=== PATIENT | female | born 1975 | race Caucasian/White ===

== ENCOUNTER 2017-10-04 15:50 | Emergency (ER) | payer BC ==
[2017-10-04 16:03] VITALS: BP 123/80; PULSE 91; RESP 16; TEMP 97.9
[2017-10-04] MEDS ORDERED: AMOXIC-POT CLAV 875-125MG 1 EACH TAB PO STA (16:27)
--- NOTE | 2017-10-04 16:38 | ED ---
ENT HPI - General Source: patient, RN notes reviewed Mode of arrival: ambulatory Limitations: no limitations <Obdulia Viveros - Last Filed: 10/04/17 16:28> <Huyen Suazo - Last Filed: 10/05/17 21:47> - General Chief complaint: ENT Stated complaint: Face swollen/Right side Time Seen by Provider: 10/04/17 16:05 - History of Present Illness Initial comments: This is a 42-year-old female who presents to the emergency department with chief complaint of right-sided facial swelling. Patient states that this morning she was eating and felt sudden pain in the right side of her face. She describes it as the "sensation you get when eating something sour." She states that she went and looked in the mirror and noticed some facial swelling. Patient denies any neck pain. She denies dental pain. Patient states that she is fully up-to-date with vaccinations. She denies recent fevers or chills, chest pain or shortness of breath, abdominal pain, nausea or vomiting. (Obdulia Viveros) - Related Data Previous Rx's Medication Instructions Recorded Amoxicillin/Potassium Clav 1 tab PO Q12HR #14 tab 10/04/17 [Augmentin 875-125 Tablet] Allergies Allergy/AdvReac Type Severity Reaction Status Date / Time No Known Allergies Allergy Verified 10/04/17 16:03 Review of Systems ROS Other: All systems not noted in ROS Statement are negative. <Obdulia Viveros - Last Filed: 10/04/17 16:28> ROS Other: All systems not noted in ROS Statement are negative. <Huyen Suazo - Last Filed: 10/05/17 21:47> ROS Statement: Those systems with pertinent positive or pertinent negative responses have been documented in the HPI. Past Medical History Past Medical History: No Reported History History of Any Multi-Drug Resistant Organisms: None Reported Past Surgical History: Orthopedic Surgery Additional Past Surgical History / Comment(s): Jaw surgery, Past Psychological History: No Psychological Hx Reported Smoking Status: Current every day smoker Past Alcohol Use History: Rare Past Drug Use History: None Reported <Obdulia Viveros - Last Filed: 10/04/17 16:28> General Exam Limitations: no limitations <Obdulia Viveros - Last Filed: 10/04/17 16:28> <Huyen Suazo P - Last Filed: 10/05/17 21:47> - General Exam Comments Initial Comments: General: Awake and alert, well-developed; in no apparent distress. HEENT: Head atraumatic, normocephalic. Pupils are equal, round and reactive to light. Extraocular movements intact. There is swelling and tenderness over the right parotid gland. A thin, white substance was extracted from the parotid gland opening. Dentition is intact and there is no tenderness on palpation of teeth or gumline. Oropharynx moist without erythema or exudate. Neck: Supple. Normal ROM. Cardiovascular: Regular rate and rhythm. No murmurs, rubs or gallops. Chest symmetrical. Respiratory: Lungs clear to auscultation bilaterally. No wheezes, rales or rhonchi. Normal respiratory effort with no use of accessory muscles. Musculoskeletal: Normal ROM, no tenderness bilateral upper and lower extremities. Ambulating normally. Skin: [place], warm and dry without rashes or lesions. Neurological: Alert and oriented x3. CN II-XII grossly intact. Speech is fluent and answers are appropriate. No focal neuro deficits. Psychiatric: Normal mood and affect. No overt signs of depression or anxiety noted. (Obdulia Viveros) Vital Signs 10/04/17 16:00 Temperature 97.9 F Pulse Rate 91 Respiratory 16 Rate Blood Pressure 123/80 O2 Sat by Pulse 98 Oximetry Medical Decision Making <Obdulia Viveros - Last Filed: 10/04/17 16:28> <Huyen Suazo P - Last Filed: 10/05/17 21:47> - Medical Decision Making This is a 42-year-old female who presents to the emergency department with chief complaint of right-sided facial swelling. On physical examination, there is swelling and tenderness over the right parotid gland. A thin, white substance was extracted from the parotid gland opening. Patient felt instant relief with saliva flow. Reduction in swelling is already noted. Patient will be started on Augmentin to cover for any infection. She is fully up-to-date with vaccinations. Vital signs are stable and she is in no acute distress. She will be discharged home at this time. She is in agreement voices understanding. All questions were answered. (Obdulia Viveros) The patient was seen and evaluated independently by the mid-level provider. I was present and available in the emergency department to evaluate the patient but was not asked to do so. We did discuss this patient's evaluation and workup. I agree with the mid-level providers evaluation and disposition as documented in the note. (Huyen Suazo) Disposition Is patient prescribed a controlled substance at d/c from ED?: No Time of Disposition: 16:38 <Obdulia Viveros - Last Filed: 10/04/17 16:28> <Huyen Suazo - Last Filed: 10/05/17 21:47> Clinical Impression: Parotid sialolithiasis Disposition: HOME SELF-CARE Condition: Good Instructions: Parotid Duct Obstruction (ED) Additional Instructions: Please take medications as prescribed. Please use lemon/sour lozenges. Please follow up with primary care provider within 1-2 days. Return to emergency department if symptoms should worsen or any concerns arise. Prescriptions: Amoxicillin/Potassium Clav [Augmentin 875-125 Tablet] 1 tab PO Q12HR #14 tab Referrals: Fifi Cary III, MD [Primary Care Provider] - 1-2 days
== END 2017-10-04 16:45 | disposition home or self-care (01) ==
LOC: EC 15:50
DX: K11.5 Sialolithiasis (principal); F17.200 Nicotine dependence, unspecified, uncomplicated
CPT/HCPCS: 99283

== ENCOUNTER 2017-10-30 05:46 | Day surgery (SDC) | payer BC ==
[2017-10-26 12:57] VITALS: BMI 27.2
--- NOTE | 2017-10-29 12:44 | P.HPOB ---
History of Present Illness H&P Date: 10/29/17 Chief Complaint: Menorrhagia This patient is a pleasant 42 yr female who is presenting for endometrial ablation secondary to persistent menorrhagia. Pelvic ultrasound has shown 2 endometrial polyps and she wishes to proceed with hysterscopy, D&C, and ablation for treatment. Review of Systems Genitourinary: Reports menorrhagia Menstruation: Reports period heavy Past Medical History Past Medical History: No Reported History Additional Past Medical History / Comment(s): "abnormal heavy vaginally bleeding with uterine polyps" History of Any Multi-Drug Resistant Organisms: None Reported Past Surgical History: Orthopedic Surgery Additional Past Surgical History / Comment(s): Jaw surgery, lt knee surgery Past Anesthesia/Blood Transfusion Reactions: No Reported Reaction Past Psychological History: No Psychological Hx Reported Smoking Status: Current every day smoker Past Alcohol Use History: None Reported Past Drug Use History: None Reported - Past Family History Mother Family Medical History: No Reported History Daughter(s) Family Medical History: Cancer Additional Family Medical History / Comment(s): brain cancer at age 7 Medications and Allergies Home Medications Medication Instructions Recorded Confirmed Type No Known Home Medications 10/26/17 10/26/17 History Allergies Allergy/AdvReac Type Severity Reaction Status Date / Time No Known Allergies Allergy Verified 10/26/17 12:49 Exam - OBG Physical Exam Abdomen: bowel sounds normal, no diffuse tenderness, no bruit present, no guarding noted, no hepatomegaly, no splenomegaly, no mass Vulva: both: normal Vagina: normal moisture, no discharge Cervix: no lesion, no discharge Uterus: normal size, normal contour Adnexa: both: normal Results Ultrasound shows 2 small endometrial polyps (1.2 cm and .7 cm). Assessment and Plan Assessment: This is a pleasant 42 yr female with longstanding menorrhagia requesting endometrial ablation for treatment. Plan is hysteroscopy, D&C, and Novasure endometrial ablation. I have discussed this surgery and risks: infection, bleeding, possible uterine perforation and/or thermal injury. All of the patients questions have been answered and a written consent obtained. 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 (1) Menorrhagia Status: Chronic Code(s): N92.0 - EXCESSIVE AND FREQUENT MENSTRUATION WITH REGULAR CYCLE SNOMED Code(s): 759550621
[~2017-10-30 05:46] MED LIST: DEXAMETHASONE SOD PHOSPHATE 10 MG/ML 1 ML VIAL IV ONE; HYDROmorphone 0.5 MG/0.5 ML SYRINGE IVP PRN; LACTATED RINGERS 1,000 ML IV SCH; LIDOCAINE 1% 20 ML VIAL (10MG/ML) FOR IV START INTRADERMA PRN; ONDANSETRON 4 MG/2 ML VIAL IVP ONE; Pre Op ABX Message 1 EACH MISC MISCELLANE ONE; SCOPOLAMINE 1.5MG/72HR PATCH TRANSDERM ONE
[2017-10-30] MEDS ORDERED: MIDAZOLAM 2 MG/2 ML VIAL ONE (07:17)
[2017-10-30] MEDS ORDERED: LIDOCAINE 1% INJ 10MG/ML (20 ML MDV) ONE (07:17)
[2017-10-30] MEDS ORDERED: PROPOFOL 10 MG/ML 20 ML VIAL IV ONE (07:17)
[2017-10-30] MEDS ORDERED: fentaNYL (PF) 50 MCG/ML 2 ML AMP ONE (07:17)
[2017-10-30] MEDS ORDERED: SUCCINYLCHOLINE CHLORIDE 100 MG/5 ML SYR IV ONE (07:17)
[2017-10-30] MEDS ORDERED: KETOROLAC 30 MG/ML 1 ML VIAL ONE (07:17)
--- NOTE | 2017-10-30 07:49 | P.OP ---
Date of Procedure: 10/30/17 Preoperative Diagnosis: Menorrhagia Postoperative Diagnosis: Same Procedure(s) Performed: #1: Hysteroscopy. #2: Dilation and curettage. #3: NovaSure endometrial ablation Anesthesia: MARLENE Surgeon: Iban Harden Estimated Blood Loss (ml): 5 Urine output (ml): 100 Pathology: other (Uterine curettings) Condition: stable Disposition: PACU Indications for Procedure: Please see dictated H&P for intimate details of this patient's admission. Brief summary this pleasant 42-year-old female with long-standing menorrhagia who is requesting NovaSure endometrial ablation for treatment. Patient understands this surgery and risks including risks of infection, bleeding, possible uterine perforation, and/or thermal injury. All the patient's questions are answered and a written consent is obtained. Operative Findings: This patient had a appear to be a few small polyps but otherwise normal endometrial cavity. Description of Procedure: This patient is taken to the operating room where she is laid in the supine position. She subsequent undergoes general endotracheal anesthesia without incident. With an adequate level of anesthesia was placed in the dorsal lithotomy position. His vaginal perineal prep and drape. Examination under anesthesia shows a mid position uterus of normal size. I first drain the bladder for approximately 100 mL of clear urine. Weighted speculums placed the posterior vagina and the anterior lip of the cervix was grabbed with an Allis clamp. Uterus is then gently sounded to 8.5 cm. With this done, I gently dilate the cervix to allow a hysteroscope easily and the uterine cavity. Using saline solution hysteroscopy is performed uterine cavity is measured to be a length of 6 cm. With this done the hysteroscope was removed. Cervix is dilated slightly more to allow a small curette easily uterine cavity. A gentle but vigorous 4 quadrant curettage is done. I then used a polyp forceps and move any tissue that I can. This done the NovaSure device is then opened it appears to be intact. I set at a length of 6.0 cm and it opens up to a width at 3.5 cm. It is then seated in place and passes the cavity integrity test. It is then enabled at 116 W setting for 86 seconds. This done the NovaSure device is removed it appears to be intact. Hysteroscopy is then performed again and the uterine cavity appears to be ablated up to the endocervix. This completed the procedure is then ended. The Allis clamp was removed and the weighted speculum was removed. All counts correct 3. There are no complications. Patient is awakened from anesthesia and taken recovery room satisfactory condition.
[2017-10-30 07:59] VITALS: TEMP 97.6
[2017-10-30 08:06] VITALS: RESP 16
[2017-10-30 09:32] VITALS: BP 128/84; PULSE 81
== END 2017-10-30 09:42 | disposition home or self-care (01) ==
LOC: OR 05:46
PROVIDERS: ATTEND Obstetrics & Gynecology
DX: N84.0 Polyp of corpus uteri (principal); F17.210 Nicotine dependence, cigarettes, uncomplicated
CPT/HCPCS: 81025; 88305; 58563; J2250; J1100; J2405; J2001; J3010; J1885; J0330; J2704

== ENCOUNTER → 2018-05-10 | Outpatient (CLI) | payer BC ==
--- NOTE | 2018-05-10 08:36 | MM ---
Reason for exam: screening (asymptomatic). Baseline mammogram. History: Took hormonal contraceptives beginning at age 23. Physical Findings: Nurse did not find any significant physical abnormalities on exam. MG 3D Screening Mammo W/Cad Bilateral CC, MLO, and XCCL view(s) were taken. The breast tissue is heterogeneously dense. This may lower the sensitivity of mammography. There is no discrete abnormality. These results were verbally communicated with the patient and result sheet given to the patient on 05/10/18. ASSESSMENT: Benign, BI-RAD 2 RECOMMENDATION: Routine screening mammogram of both breasts in 1 year.
== END ==
LOC: RADMAMWWP 06:56
PROVIDERS: ATTEND Family Medicine
DX: Z12.31 Encounter for screening mammogram for malignant neoplasm of breast (principal)
CPT/HCPCS: 77063; 77067

== ENCOUNTER → 2020-11-30 | Outpatient (CLI) | payer BC ==
--- NOTE | 2020-12-03 09:11 | MM ---
Reason for exam: screening (asymptomatic). Last mammogram was performed 2 years and 7 months ago. History: Took hormonal contraceptives beginning at age 23. Physical Findings: A clinical breast exam by your physician is recommended on an annual basis and results should be correlated with mammographic findings. MG 3D Screening Mammo W/Cad Bilateral CC and MLO view(s) were taken. Prior study comparison: May 10, 2018, bilateral MG 3d screening mammo w/cad. There are scattered fibroglandular densities. There is no discrete abnormality. No significant changes when compared with prior studies. ASSESSMENT: Negative, BI-RAD 1 RECOMMENDATION: Routine screening mammogram of both breasts in 1 year.
== END | disposition home or self-care (01) ==
LOC: RADMAMWWP 11:15
PROVIDERS: ATTEND Family Medicine
DX: Z12.31 Encounter for screening mammogram for malignant neoplasm of breast (principal)
CPT/HCPCS: 77063; 77067

== ENCOUNTER → 2020-12-07 | Outpatient (CLI) | payer BC ==
--- NOTE | 2020-12-25 13:50 | EM ---
EVENT MONITOR FOURTEEN-DAY EVENT MONITOR: Patient had several recordings on her 14-day event monitor. Most of these were supraventricular beats, isolated in fashion. Other times it was sinus rhythm, sinus tachycardia. Most of these were auto capture. Patient complained of chest pressure on one occasion and she was in a normal sinus rhythm. She felt some irregularity and a fluttering sensation, but she was in a normal rhythm at 80 beats per minute. There is no correlation of any arrhythmia when patient felt some symptoms of irregular beat or flutter. Isolated PVCs and PACs were noted. No other significant arrhythmia was detected on this event monitor. MMODL / IJN: [id number] /
== END | disposition home or self-care (01) ==
LOC: RADECHMAIN 11:49
PROVIDERS: ATTEND Nurse Practitioner Family
DX: I49.3 Ventricular premature depolarization (principal); I49.1 Atrial premature depolarization
CPT/HCPCS: 93270

== ENCOUNTER → 2022-08-29 | Outpatient (CLI) | payer BC ==
[2022-08-29 15:43] LABS: Basophils # (A) 0.05 X 10*3/uL (0.00-0.10); Basophils % (A) 0.7 %; Eosinophils # (A) 0.21 X 10*3/uL (0.04-0.35); HCT 44.6 % (37.2-46.3); HGB 14.6 d/dL (12.0-15.0); Lymphocytes # (A) 2.27 X 10*3/uL (0.90-5.00); Lymphocytes % (A) 32.1 %; MCH 30.8 pg (27.0-32.0); MCHC 32.7 d/dL (32.0-37.0); MCV 94.1 FL (80.0-97.0); Mean Platelet Volume 9.7 FL (9.5-12.2); Monocytes # (A) 0.44 X 10*3/uL (0.20-1.00); Monocytes % (A) 6.2 %; NRBC Per 100 WBC 0 X 10*3/uL (0.00-0.01); Neutrophils # (A) 4.07 X 10*3/uL (1.80-7.70); Neutrophils % (A) 57.6 %; Platelet Count 408 X 10*3/uL (140-440); RBC 4.74 X 10*6/uL (4.10-5.20); RDW 12.6 % (11.5-14.5); WBC 7.07 X 10*3/uL (4.50-10.00)
[2022-08-29 16:00] LABS: BUN/Creat Ratio 10.12 Ratio (12.00-20.00); Blood Urea Nitrogen 8.1 mg/dL (9.0-27.0); Calcium 10.1 mg/dL (8.7-10.3); Carbon Dioxide 23.1 mmol/L (21.6-31.8); Chloride 103 mmol/L (96-109); Glucose 82 mg/dL (70-110); Potassium 4.7 mmol/L (3.5-5.5); Sodium 138 mmol/L (135-145)
== END | disposition home or self-care (01) ==
LOC: LABPAT 08:15
PROVIDERS: ATTEND Obstetrics & Gynecology
DX: Z01.812 Encounter for preprocedural laboratory examination (principal)
CPT/HCPCS: 80048; 85025

== ENCOUNTER 2022-09-04 05:32 | Observation (INO) | payer BC ==
--- NOTE | 2022-09-03 13:08 | P.HPOB ---
History of Present Illness H&P Date: 09/03/22 Chief Complaint: Dysmenorrhea, Menorrhagia with irregular cycle This is a 47 y.o. female, 3, para 2, who presents for total laparoscopic hysterectomy with bilateral salpingectomy with Davinci and diagnostic cystoscopy, possible bilateral oophorectomy, possible total abdominal hysterectomy with bilateral salpingooophorectomy due to menorrhagia with irregular cycle, dysmenorrhea and post-ablative syndrome. She had a Novasure endometrial ablation in 2018 and states it didn't work. Her menses were previously 3 days and are now lasting up to 7 days and she has severe cramping during her cycles. She would like definitive surgical treatment. Pelvic ultrasound shows uterus measuring 10.5 x 6.1 x 4.8 cm with endometrium poorly visualized. There are a few couple small fibroids measuring less than 2 cm anteriorly. Small simple cysts are noted bilateral ovaries. OB Hx: History of 2 vaginal deliveries and 1 miscarriage. [employer] Hx: No history of STDs. Social Hx: . Works at [employer]. Review of Systems Constitutional: Denies chills, Denies fever Eyes: denies blurred vision, denies pain Ears, nose, mouth and throat: Denies headache, Denies sore throat Cardiovascular: Denies chest pain, Denies shortness of breath Respiratory: Denies cough Gastrointestinal: Denies abdominal pain, Denies diarrhea, Denies nausea, Denies vomiting Genitourinary: Reports dysmenorrhea, Reports menorrhagia, Reports pelvic pain Menstruation: Reports period heavy Musculoskeletal: Reports low back pain Integumentary: Denies pruritus, Denies rash Psychiatric: Denies anxiety, Denies depression Endocrine: Denies fatigue, Denies weight change Past Medical History Past Medical History: No Reported History Additional Past Medical History / Comment(s): "abnormal heavy vaginally bleeding with uterine polyps", L leg sciatica History of Any Multi-Drug Resistant Organisms: None Reported Past Surgical History: Orthopedic Surgery, Uterine Ablation Additional Past Surgical History / Comment(s): Jaw surgery, L knee arthroscopy/realignment. Past Anesthesia/Blood Transfusion Reactions: No Reported Reaction Additional Past Anesthesia/Blood Transfusion Reaction / Comment(s): Pt never received blood. Past Psychological History: No Psychological Hx Reported Smoking Status: Current every day smoker Past Alcohol Use History: Occasional Additional Past Alcohol Use History / Comment(s): Pt started smoking in 1995, 1- 2 cigarettes per day Past Drug Use History: None Reported - Past Family History Mother Family Medical History: Coronary Artery Disease (CAD) Additional Family Medical History / Comment(s): cabg Daughter(s) Family Medical History: Cancer Additional Family Medical History / Comment(s): brain cancer at age 7 Medications and Allergies Home Medications Medication Instructions Recorded Confirmed Type Ibuprofen [Motrin Ib] 200 mg PO Q8HR PRN 09/01/22 09/01/22 History Multivit with Calcium,Iron,Min 1 tab PO QAM 09/01/22 09/01/22 History [Women's Multivitamin] Allergies Allergy/AdvReac Type Severity Reaction Status Date / Time No Known Allergies Allergy Verified 09/04/22 06:07 Exam Osteopathic Statement: *. No significant issues noted on an osteopathic structural exam other than those noted in the History and Physical/Consult. HEENT: within normal limits Heart: regular rate and rhythm Lungs: clear to auscultation bilaterally Abdomen: soft, non-tender Pelvic: uterus sl. enlarged, non-tender with no adnexal masses or tenderness Extremities: neg. Mariposa's Assessment and Plan (1) Menorrhagia with irregular cycle Current Visit: No Status: Acute Code(s): N92.1 - EXCESSIVE AND FREQUENT MENSTRUATION WITH IRREGULAR CYCLE SNOMED Code(s): 755551137 (2) Dysmenorrhea Current Visit: No Status: Acute Code(s): N94.6 - DYSMENORRHEA, UNSPECIFIED SNOMED Code(s): 697167469 (3) Post endometrial ablation syndrome Current Visit: No Status: Acute Code(s): N99.85 - POST ENDOMETRIAL ABLATION SYNDROME SNOMED Code(s): 727108879 Plan: Proceed with total laparoscopic hysterectomy with bilateral salpingectomy with Davinci and diagnostic cystoscopy, possible bilateral oophorectomy, possible total abdominal hysterectomy with bilateral salpingooophorectomy. I have discussed the risks, benefits, and alternative therapies for the above- mentioned procedure and for both sedation/anesthesia as well as necessary blood products administration, if indicated, as they pertain to this patient. The patient has indicated her understanding and acceptance of the risks and procedures discussed.
[2022-09-04] MEDS ORDERED: ONDANSETRON 4 MG/2 ML VIAL IVP ONE ×2 (05:41→09:32)
[2022-09-04] MEDS ORDERED: DEXAMETHASONE SOD PHOSPHATE 4 MG/ML 1 ML VIAL IV ONE (05:41)
[2022-09-04] MEDS ORDERED: HYDROmorphone 0.5 MG/0.5 ML SYRINGE IVP PRN (05:41)
[2022-09-04] MEDS: LACTATED RINGERS 1,000 ML IV SCH ×2 (06:18→14:54)
[2022-09-04] MEDS ORDERED: fentaNYL (PF) 50 MCG/1 ML VIAL IV ONE (06:41)
[2022-09-04] MEDS ORDERED: MIDAZOLAM 2 MG/2 ML VIAL IV ONE (06:41)
[2022-09-04] MEDS ORDERED: SODIUM CHLORIDE 0.9% (PF) 10 ML VIAL ONE (07:08)
[2022-09-04] MEDS ORDERED: MIDAZOLAM 2 MG/2 ML VIAL ONE (07:08)
[2022-09-04] MEDS ORDERED: SUCCINYLCHOLINE CHLORIDE 200 MG/10 ML VIAL IV ONE (07:08)
[2022-09-04] MEDS ORDERED: ROCURONIUM 10 MG/ML (5 ML VIAL) IV ONE (07:08)
[2022-09-04] MEDS ORDERED: NEOSTIGMINE 1 MG/ML 10 ML VIAL ONE (07:08)
[2022-09-04] MEDS ORDERED: GLYCOPYRROLATE 0.2 MG/ML 2 ML VIAL ONE (07:08)
[2022-09-04] MEDS ORDERED: ACETAMINOPHEN IV (For NPO) 1,000 MG/100 ML VIAL ONE (07:08)
[2022-09-04] MEDS ORDERED: PROPOFOL 10 MG/ML 20 ML VIAL IV ONE (07:08)
[2022-09-04] MEDS ORDERED: LIDOCAINE 2% INJ 20 MG/ML (2 ML VIAL) ONE (07:08)
[2022-09-04] MEDS ORDERED: HYDROmorphone (PF) 1 MG/ML ONE (07:08)
[2022-09-04] MEDS ORDERED: ROPIVACAINE 5 MG/ML 30 ML VIAL ONE (07:08)
[2022-09-04] MEDS ORDERED: fentaNYL (PF) 50 MCG/ML 2 ML AMP ONE (07:08)
[2022-09-04] MEDS ORDERED: BUPIVACAINE (PF) 0.25% 30 ML VIAL SQ ONE (07:52)
[2022-09-04] MEDS ORDERED: LACTATED RINGERS 1,000 ML IV ONE (08:44)
--- NOTE | 2022-09-04 08:56 | P.ANPRN ---
Procedure Note - Anesthesia - Nerve Block Performed Bilateral Erector Spinae Time Out Performed: Yes (06:40) Date of Procedure: 09/04/22 Procedure Start Time: Procedure Stop Time: :46 Location of Patient: PreOp Indication: Acute Post-Operative Pain, Requested by Surgeon (DR Rasmussen) Sedation Type: Sedate with meaningful contact maintained Preparation: Sterile Prep Position: Prone Catheter: None Needle Types: Pajunk Needle Gauge: 21 Ultrasound used to visualize needle placement: Yes Ultrasound used to observe medication spread: Yes Injectate: 0.5% Ropivacaine (see comment for volume) (15cc +10cc PF Normal saline each side) Blood Aspirated: No Pain Paresthesia on Injection Noted: No Resistance on Injection: Normal Image Stored and Saved: Yes Events: Uneventful and Well Tolerated
--- NOTE | 2022-09-04 09:47 | P.OP ---
Date of Procedure: 09/04/22 Preoperative Diagnosis: Menorrhagia with irregular cycle Dysmenorrhea Post-ablative syndrome Postoperative Diagnosis: Same Procedure(s) Performed: Total laparoscopic hysterectomy with bilateral salpingectomy with da Tawanda Diagnostic cystoscopy Anesthesia: MARLENE Surgeon: Lyly Rasmussen Manager Track #1: Amy Izaguirre Estimated Blood Loss (ml): 50 Pathology: other (Uterus with cervix, bilateral fallopian tubes) Condition: stable Disposition: floor Indications for Procedure: This is a 47 y.o. female, 3, para 2, who presents for total laparoscopic hysterectomy with bilateral salpingectomy with Davinci and diagnostic cystoscopy, possible bilateral oophorectomy, possible total abdominal hysterectomy with bilateral salpingooophorectomy due to menorrhagia with irregular cycle, dysmenorrhea and post-ablative syndrome. She had a Novasure endometrial ablation in 2018 and states it didn't work. Her menses were previously 3 days and are now lasting up to 7 days and she has severe cramping during her cycles. She would like definitive surgical treatment. Pelvic ultrasound shows uterus measuring 10.5 x 6.1 x 4.8 cm with endometrium poorly visualized. There are a few couple small fibroids measuring less than 2 cm anteriorly. Small simple cysts are noted bilateral ovaries. Operative Findings: Normal appearing uterus with normal tubes and ovaries noted. Uterus is sounded to 8-1/2 cm. Description of Procedure: The patient was taken to the operating room where she is placed in the dorsal lithotomy position on a pink pad. Her arms are tucked at her sides and cushioned. Once she is in adequate position and anesthesia was given, a tilt test is completed and passed. She is prepped and draped in the normal sterile fashion. Next a weighted speculum was placed in the patient's vagina. A right angle retractor is used to visualize the cervix. The anterior lip of the cervix is grasped with a single-tooth tenaculum. Uterus is sounded to 8-1/2 cm. Cervix is gently dilated with Kasper dilators. Next the cervix is measured at 3.5 cm. 0 Vicryl stitches are placed at the 3 and 9:00 positions on the cervix and held. Next the HUMI manipulator is placed within the cervix, the balloon is inflated, and then the 0 Vicryl sutures are brought through the HUMI and then the cervical cup is pressed against the cervix until the click is heard. Next the bladder Dahl catheter is inserted. Gloves are changed and attention is turned to the abdomen. The uterus is anteverted and then marked on the abdomen. An incision is made above the umbilicus approximately 8 cm above the top of the uterus and then a 5 mm disposable bladeless trocar is inserted under direct visualization with low flow. Once inside high flow is turned on and intra- abdominal contents were inspected. Another incision is made on the right side approximately 8 cm lateral to the umbilicus in the midline and a 8 mm da Tawanda port is placed under direct visualization. The same procedure is carried out on the left side. Next an rehab care assistant port is placed approximately 6 cm superior to the right da Tawanda port and lateral to the camera port using a 12 mm trocar under direct visualization. Next the 5 mm camera sleeved is replaced with an 8 mm da Tawanda port. Next the da Tawanda robot is docked to the patient from her right side. The ports are attached to the arms. Smoke evacuator is also attached. The camera is inserted and then a monopolar scissors is placed through the right port and a vessel sealer was placed through the left port under direct visualization. Energy is attached to the monopolar port. At this time I broke scrub to go to the robot console. The end of the left fallopian tube is grasped by the rehab care assistant and the vessel sealer is used to apply bipolar energy and cut the mesosalpinx. The fallopian tube was then removed through the rehab care assistant port. Next the vessel sealer is used to cauterize and cut the uterine ovarian ligaments. Monopolar scissors are used to open up the posterior leaf of the broad ligament down to the uterosacral ligaments. Uterine arteries are then cauterized with bipolar energy using the vessel sealer. Monopolar scissors were then used to carefully dissect the bladder reflection and the bladder flap is created. Next attention is turned to the right side of the pelvis. The end of the right fallopian tube is grasped and then the vessel sealer is used to cauterize and cut along the mesosalpinx. The end of the fallopian tube was then removed through the rehab care assistant port. The uterine ovarian ligaments are cauterized and cut with the vessel sealer and then the posterior edge of the broad leaf is opened up to the uterosacral ligaments. Uterine arteries are cauterized with the vessel sealer and cut. Next the uterus is retroverted and the balloon is inflated. Monopolar scissors are used to cut through the vaginal cuff along the HUMI cuff anteriorly. This is carried around to the right side again using monopolar and vessel sealer. The uterus is anteverted and then the posterior cuff is cut along the HUMI cuff using monopolar scissors. The remainder of the left side of the cuff is removed with monopolar and vessel sealer. Once the uterus is freed it is removed through the vagina. Monopolar and vessel sealer are used to cauterize any small bleeders left behind. Next the arms are switched out to the right arm with Brandon suture cut and the left arm continued with the vessel sealer. An O-Stratafix suture is then used to suture from the right side of the cuff across to the left side in a running fashion after securing the suture with the small loop on the end. Once the left side of the cuff was reached, a couple more sutures were placed going towards the right side to secure the suture. Suture was then cut and removed from the field. Irrigation was carried out. Good hemostasis was noted. Picture was taken. Both ovaries appeared normal. Next the instruments are removed from the arms. The arms are detached from the trochars. The da Tawanda robot is then undocked and stowed. The trochars are removed after releasing the pneumoperitoneum area incisions are then sutured with 4-0 undyed Vicryl suture in a subcuticular fash ion and then injected with quarter percent Marcaine. I regowned and cystoscopy was then performed. Both ureteral orifices were visualized with flow from both sides. Cystoscopy was then completed and Dahl catheter was replaced. Clear urine was noted. All sponge and needle counts are correct. The patient is then taken to recovery room in stable condition.
[2022-09-04] MEDS ORDERED: IBUPROFEN 600 MG TAB PO PRN (11:02)
[2022-09-04] MEDS ORDERED: diphenhydrAMINE 50 MG/ML 1 ML VIAL IVP PRN (11:02)
[2022-09-04] MEDS ORDERED: METOCLOPRAMIDE 5 MG/ML 2 ML VIAL IVP PRN (11:02)
[2022-09-04] MEDS ORDERED: ZOLPIDEM 5 MG TAB PO PRN (11:02)
[2022-09-04] MEDS ORDERED: ACETAMINOPHEN IV (For NPO) 1,000 MG in EMPTY BAG 1 BAG IVPB ONE (11:02)
[2022-09-04] MEDS ORDERED: ONDANSETRON 4 MG/2 ML VIAL IVP PRN (11:02)
[2022-09-04] MEDS: SENNOSIDES-DOCUSATE SODIUM 1 EACH TAB PO SCH ×2 (11:31→21:47)
[2022-09-04] MEDS: SIMETHICONE 80 MG CHEWABLE PO PRN ×2 (11:39→18:05)
[2022-09-04] MEDS: KETOROLAC 15 MG/ML 1 ML VIAL IVP PRN ×2 (14:54→21:39)
[2022-09-04] MEDS ORDERED: ACETAMINOPHEN TAB 325 MG TAB PO PRN (17:54)
[2022-09-04] MEDS: ACETAMINOPHEN TAB 325 MG TAB PO PRN (18:05)
[2022-09-05] MEDS: ACETAMINOPHEN TAB 325 MG TAB PO PRN ×2 (00:31→06:17)
[2022-09-05] MEDS: SIMETHICONE 80 MG CHEWABLE PO PRN (00:36)
[2022-09-05] MEDS: KETOROLAC 15 MG/ML 1 ML VIAL IVP PRN ×2 (03:35→08:37)
[2022-09-05 07:15] LABS: Basophils % (A) 0 %; Eosinophils # (A) 0.1 k/uL (0-0.7); Eosinophils % (A) 1 %; HCT 37.3 % (34.0-46.0); HGB 12.6 gm/dL (11.4-16.0); Lymphocytes # (A) 2.7 k/uL (1.0-4.8); Lymphocytes % (A) 26 %; MCH 31.2 pg (25.0-35.0); MCHC 33.7 g/dL (31.0-37.0); MCV 92.7 fL (80.0-100.0); Mean Platelet Volume 7.3; Monocytes # (A) 0.4 k/uL (0-1.0); Monocytes % (A) 4 %; Neutrophils # (A) 7.1 k/uL (1.3-7.7); Neutrophils % (A) 68 %; Platelet Count 307 k/uL (150-450); RBC 4.02 m/uL (3.80-5.40); RDW 12.4 % (11.5-15.5); WBC 10.4 k/uL (3.8-10.6)
[2022-09-05] MEDS ORDERED: ACETAMINOPHEN TAB 325 MG TAB PO PRN (07:20)
--- NOTE | 2022-09-05 08:25 | P.DS ---
Providers Date of admission: 09/05/22 07:58 Expected date of discharge: 09/05/22 Attending physician: Lyly Rasmussen Primary care physician: Stated None - Discharge Diagnosis(es) (1) Menorrhagia with irregular cycle Current Visit: No Status: Acute (2) Dysmenorrhea Current Visit: No Status: Acute (3) Post endometrial ablation syndrome Current Visit: No Status: Acute Hospital Course: This is a 47-year-old female who underwent a total laparoscopic hysterectomy with bilateral salpingectomy with da Tawanda and diagnostic cystoscopy on 09/04/2022. Postoperatively she has done well. She is passing flatus and urinating without difficulty. Her pain is fairly well controlled. Bleeding has been scant. She is tolerating regular diet. Vital signs are stable. Abdomen is soft with positive bowel sounds 4. Bandages are intact and dry. Carito-pad shows scant serosanguineous discharge. Extremities show negative Homans. Impression is status post above-noted procedure postoperative day #1. Plan is to discharge home today. Routine postoperative instructions are given. She is advised that she may shower but no tub baths. She is advised no intercourse for at least 6 weeks. No heavy lifting. She will be given a prescription for ibuprofen 600 mg every 6 hours as needed for pain. She can alternate this with Tylenol. She is advised to follow up in the office in approximately one week for postoperative check. She is advised to call the office if she has any further questions or concerns prior to her appointment time. Procedures: Total laparoscopic hysterectomy with bilateral salpingectomy with da Tawanda and diagnostic cystoscopy on 09/04/2022 Patient Condition at Discharge: Stable Plan - Discharge Summary Discharge Rx Participant: No New Discharge Prescriptions: New Ibuprofen [Motrin] 600 mg PO Q6HR PRN #60 tab PRN Reason: Mild Discomfort Acetaminophen Tab [Tylenol] 650 mg PO Q6HR PRN tab PRN Reason: Mild Pain Or Fever > 100.5 Continue Multivit with Calcium,Iron,Min [Women's Multivitamin] 1 tab PO QAM Discontinued Ibuprofen [Motrin Ib] 200 mg PO Q8HR PRN PRN Reason: Pain Discharge Medication List Multivit with Calcium,Iron,Min [Women's Multivitamin] 1 tab PO QAM 09/01/22 [History] Acetaminophen Tab [Tylenol] 650 mg PO Q6HR PRN tab 09/05/22 [Rx] Ibuprofen [Motrin] 600 mg PO Q6HR PRN #60 tab 09/05/22 [Rx] Follow up Appointment(s)/Referral(s): Lyly Rasmussen DO [Doctor of Osteopathic Medicine] - 1 Week Activity/Diet/Wound Care/Special Instructions: Activity as tolerated. Diet as tolerated. May shower but no tub baths for 1 week. No intercourse for at least 6 weeks. No heavy lifting. Discharge Disposition: HOME SELF-CARE
[2022-09-05] MEDS: SENNOSIDES-DOCUSATE SODIUM 1 EACH TAB PO SCH (08:38)
[2022-09-05 09:36] VITALS: BP 121/77; PULSE 76; RESP 20; TEMP 98.1
== END 2022-09-05 10:30 | disposition home or self-care (01) ==
LOC: OR 05:32 → 4FBP 08:50 → OR 09-05 07:58
PROVIDERS: ADMIT Obstetrics & Gynecology; ATTEND Obstetrics & Gynecology
DX: N80.03 Adenomyosis of the uterus (principal); D25.1 Intramural leiomyoma of uterus; N94.6 Dysmenorrhea, unspecified; N92.1 Excessive and frequent menstruation with irregular cycle; N84.1 Polyp of cervix uteri; N99.85 Post endometrial ablation syndrome; N83.292 Other ovarian cyst, left side; N83.291 Other ovarian cyst, right side; F17.210 Nicotine dependence, cigarettes, uncomplicated; Z82.49 Family history of ischemic heart disease and other diseases of the circulatory system; Z80.8 Family history of malignant neoplasm of other organs or systems
CPT/HCPCS: 58571; S2900; 64999; 81025; 85025; 86850; 86900; 86901; 88307

== ENCOUNTER → 2024-04-05 | Outpatient (CLI) | payer BC ==
[2024-04-05 15:01] LABS: Basophils # (A) 0.06 X 10*3/uL (0.00-0.10); Basophils % (A) 0.9 %; Eosinophils # (A) 0.31 X 10*3/uL (0.04-0.35); Eosinophils % (A) 4.5 %; HCT 44.9 % (37.2-46.3); HGB 14.8 g/dL (12.0-15.0); Lymphocytes % (A) 29.3 %; MCH 30.1 pg (27.0-32.0); MCV 91.4 FL (80.0-97.0); Mean Platelet Volume 9.7 FL (9.5-12.2); Monocytes # (A) 0.32 X 10*3/uL (0.20-1.00); Monocytes % (A) 4.7 %; NRBC Per 100 WBC 0 X 10*3/uL (0.00-0.01); Neutrophils # (A) 4.12 X 10*3/uL (1.80-7.70); Neutrophils % (A) 60.5 %; Platelet Count 424 X 10*3/uL (140-440); RBC 4.91 X 10*6/uL (4.10-5.20); WBC 6.82 X 10*3/uL (4.50-10.00)
[2024-04-05 17:54] LABS: ALT 8 U/L (8-44); AST 13 U/L (13-35); Albumin 4.6 g/dL (3.8-4.9); Albumin/Globulin Ratio 1.92 Ratio (1.60-3.17); Alkaline Phosphatase 62 U/L (41-126); BUN/Creat Ratio 14.75 Ratio (12.00-20.00); Blood Urea Nitrogen 11.8 mg/dL (9.0-27.0); Calcium 10.1 mg/dL (8.7-10.3); Chloride 105 mmol/L (96-109); Chol/HDL Ratio 3.07 Ratio; Globulin 2.4 g/dL (1.6-3.3); Glucose 78 mg/dL (70-110); LDL Cholesterol,Calculated 116.6 mg/dL (0.0-131.0); Potassium 5.1 mmol/L (3.5-5.5); Sodium 139 mmol/L (135-145); T4, Free (Free Thyroxine) 1.23 ng/dL (0.80-1.80); Total Bilirubin 0.4 mg/dL (0.3-1.2); VLDL Calculation 11.64 mg/dL (5.00-40.00)
== END | disposition home or self-care (01) ==
LOC: LABWHC1 10:33
PROVIDERS: ATTEND Family Medicine
DX: E07.9 Disorder of thyroid, unspecified (principal); E78.5 Hyperlipidemia, unspecified
CPT/HCPCS: 36415; 80053; 80061; 84439; 84443; 85025